=== PATIENT | female | born 1950 | race Caucasian/White ===

== ENCOUNTER 2022-08-04 06:12 | Day surgery (SDC) | payer MEDICARE ==
[2022-08-03 09:14] VITALS: BMI 27.4
[~2022-08-04 06:12] MED LIST: EPINEPHrine 0.3 MG in Ophthalmic Irrigation Solution 500 ML IRR SCH
[2022-08-04] MEDS ORDERED: Phenylephrine 2.5% Ophth Soln 5 ML BOT ONE (06:28)
[2022-08-04] MEDS ORDERED: Cyclopentolate 1% Opth Drop 2 ML BOT ONE (06:28)
[2022-08-04] MEDS ORDERED: Midazolam HCl 2 mg/2 ml Vial ONE (06:44)
[2022-08-04] MEDS ORDERED: fentaNYL PF 100 MCG/2 ML SYRINGE ONE (06:44)
[2022-08-04] MEDS ORDERED: PROPOFOL 20 ML ONE (06:45)
[2022-08-04] MEDS ORDERED: Maxitrol 0.1% Opth Oint 3.5 GM TUBE ONE (07:21)
[2022-08-04] MEDS ORDERED: CEFAZOLIN 1 GM VIAL ONE (07:21)
[2022-08-04] MEDS ORDERED: Lidocaine 4% PF 5 ML AMP ONE (07:21)
[2022-08-04] MEDS ORDERED: Bupivacaine 0.75% 10 ML VIAL ONE (07:21)
[2022-08-04] MEDS ORDERED: Lidocaine 1% PF 5 ML VIAL ONE (07:21)
[2022-08-04] MEDS ORDERED: Triamcinolone 40 MG/ML VIAL ONE (07:21)
== END 2022-08-04 08:20 | disposition home or self-care (01) ==
LOC: SDC 06:12
PROVIDERS: ATTEND Ophthalmology Retina Specialist
PROC: 08T53ZZ Resection of Left Vitreous, Percutaneous Approach (ICD-10-PCS; principal; 2022-08-04)
PROC: 08NF3ZZ Release Left Retina, Percutaneous Approach (ICD-10-PCS; 2022-08-04)
DX: H43.312 Vitreous membranes and strands, left eye (principal); I10 Essential (primary) hypertension; E78.5 Hyperlipidemia, unspecified; Z79.899 Other long term (current) drug therapy; Z88.5 Allergy status to narcotic agent
CPT/HCPCS: J0171; J0690; J2250; J2704; J3301; J3490